=== PATIENT | female | born 1995 | race African-American/Black ===

== ENCOUNTER 2023-01-12 17:44 | Emergency (ER) | payer OTHER, SELFPAY ==
--- NOTE | ~2023-01-12 | XR_ITS ---
Clinical Indication: Chest pain PA and lateral views of the chest: Comparison: None Findings: The lungs are clear, without evidence of focal consolidation or pleural effusion. Cardiome diastinal silhouette is within normal limits. Bones and soft tissues are unremarkable. Impression: Normal chest. Reviewed, dictated and finalized at location . Impression: Normal chest.
--- NOTE | 2023-01-12 17:46 | ECG_ITS ---
Measurements Intervals [place] Rate: 103 P: 47 VT: 158 QRS: 17 QRSD: 79 T: -55 QT: 325 QTc: 426 Interpretive Statements SINUS TACHYCARDIA ST-T WAVE ABNORMALITY IN ANTEROLATERAL LEADS- CONSIDER ISCHEMIA ABNORMAL ECG NO PREVIOUS ECG AVAILABLE FOR COMPARISON Electronically Signed On 01-12-2023 20:55:41 CDT by Ayush Perdue D.O.
[2023-01-12 17:47] VITALS: BP 155/101; PULSE 103; RESP 18; TEMP 36.8; O2SAT 98
[2023-01-12 18:25] LABS: Basophils Percent Auto 0.5 % (0.2-1.2); Eosinophils Percent Auto 0.4 % (0-4.4); Hematocrit 40.5 % (37.0-47.0); Hemoglobin 13.3 g/dL (12.0-15.0); Immature Granulocyte Absolute 0.01 K/mm3 (0.00-0.031); Immature Granulocyte Percent A 0.1 % (0-0.5); Lymphocytes Absolute Auto 3.32 K/mm3 (0.9-3.2); Lymphocytes Percent Auto 41.8 % (18.3-44.2); Mean Corpuscular HGB Conc 32.8 g/dl (32-36); Mean Corpuscular Hemoglobin 31.7 pg (26-34); Mean Corpuscular Volume 96.4 fl (80-100); Mean Platelet Volume 8.4 fl (7.4-10.4); Monocytes Absolute Auto 0.5 K/mm3 (0.1-0.6); Monocytes Percent Auto 5.9 % (2.6-8.5); Neutrophils Absolute Auto 4.1 K/mm3 (1.3-6.7); Neutrophils Percent Auto 51.3 % (45.5-73.1); Platelet Count Result 416 k/mm3 (150-375); Red Cell Distribution Width 11.7 % (11.5-14.5)
[2023-01-12 18:35] LABS: INR 0.9; Prothrombin Time 12.7 Seconds (11.1-14.7)
[2023-01-12 18:37] LABS: Alanine Aminotransferase 21 U/L (6-35); Albumin Level 4.4 g/dL (3.5-5.1); Alkaline Phosphatase 49 U/L (38-126); Anion Gap 10 mmol/L (8-16); Aspartate Amino Transferase 23 U/L (14-36); Bilirubin,Total 0.7 mg/dL (0.2-1.3); Blood Urea Nitrogen 11 mg/dL (7-17); Calcium 9.3 mg/dL (8.4-10.2); Carbon Dioxide 24 mmol/L (22-30); Chloride 105 mmol/L (98-107); Estimated CRCL calculation 131 ml/min; Estimated Glomerular Filt Rate > 60; Glucose 101 mg/dL (65-110); Lipase 77 U/L (23-300); Potassium 3.6 mmol/L (3.4-5.0); Sodium 139 mmol/L (137-145)
[2023-01-12 18:49] LABS: Troponin I < 0.012 ng/mL (0.000-0.034)
[2023-01-12 21:15] VITALS: BP 152/86; PULSE 86; RESP 16; O2SAT 100
[2023-01-12] MEDS: ACETAMINOPHEN 500 MG TABLET 1000 MG PO (21:25)
[2023-01-12] MEDS: IBUPROFEN 400 MG TABLET 800 MG PO (21:25)
[2023-01-12 21:38] LABS: NT Pro B Type Natriuretic Pept 28 pg/mL (19.9-100)
[2023-01-12 21:39] LABS: Troponin I < 0.012 ng/mL (0.000-0.034)
[2023-01-12 21:54] LABS: D Dimer < 0.27 ug/mL (<0.48)
[2023-01-12 22:02] VITALS: O2SAT 100
--- NOTE | 2023-01-12 22:22 | ED.GENADULT ---
HPI - General Adult General Chief complaint: Chest Pain Stated complaint: Chest pain/SOB Time Seen by Provider: 01/12/23 21:05 History of Present Illness HPI narrative: This is a pleasant 27-year-old female presenting to ED with a chief complaint of shortness of breath chest pain. Patient says for the last 2 weeks she has been having intermittent sharp chest pain on the left side that sometimes moves to the right side. Is 4 5 in intensity. It comes and goes throughout the day and lasts about 5 minutes at a time She has never had this before there are no exacerbating or alleviating symptoms. She denies fever chills URI symptoms, nausea vomiting diarrhea, diaphoresis or exertional component, DVT / PE risk factors or recent trauma or surgeries. Related Data Allergies Allergy/AdvReac Type Severity Reaction Status Date / Time No Known Allergies Allergy Verified 01/12/23 17:46 [facility] Past Medical History Medical History Hypertension Exam Narrative: APPEARANCE: No apparent distress. Head: atraumatic. EYES: EOMI, NOSE: Atraumatic NECK: Trachea midline RESPIRATORY: No increased rate of breathing , clear to auscultation CARDIOVASCULAR: RRR, no peripheral edema ABDOMINAL: Non-distended soft nontender no guarding rebound, no CVA tenderness MUSCULOSKELETAl: No obvious deformities NEURO: Alert. Moving 4/4 extremities SKIN:: Warm, dry. Normal color PSYCHIATRIC: Normal affect Course Vital Signs Vital signs: Vital Signs Temperature 98.3 F 01/12/23 17:47 Pulse Rate 103 H 01/12/23 17:47 Respiratory Rate 18 01/12/23 17:47 Blood Pressure 155/101 H 01/12/23 17:47 Pulse Oximetry 98 01/12/23 17:47 Oxygen Delivery Room Air 01/12/23 17:47 Temperature 98.3 F 01/12/23 17:47 Pulse Rate 86 01/12/23 21:15 Respiratory Rate 16 01/12/23 21:15 Blood Pressure 152/86 H 01/12/23 21:15 Pulse Oximetry 100 01/12/23 22:02 Oxygen Delivery Room Air 01/12/23 22:02 Medical Decision Making [facility] Narrative Medical decision making narrative: -Course: 27-year-old female presenting with 2 weeks of intermittent shortnessof breath and chest pain. Work-up including troponins, BNP D-dimer EKG, and chest x-ray were negative. Patient has had stable vital signs and normal physical exam. Patient has subjective dyspnea but objectively is well appearing with a normal respiratory rate saturating 100% on room air. No episodes in the ED. Patient will be discharged with primary care follow-up and return precautions. 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 Chest x-ray normal. Independent EKG interpretation: Rhythm [sinus], Rate [103], Arnold -[normal], CA -[normal], QRS [narrow], QTC [normal], T waves -[negative for concerning inversions], ST Segments - [Negative for concerning elevations] Final interpretations: sinus tachycardia with nonspecific T-wave abnormalities] -Interventions: Motrin, Tylenol -Shared decision making / Disposition: discharged -RX Motrin, Tylenol Vital Signs Vital Signs: Vital Signs Temperature 98.3 F 01/12/23 17:47 Pulse Rate 103 H 01/12/23 17:47 Respiratory Rate 18 01/12/23 17:47 Blood Pressure 155/101 H 01/12/23 17:47 Pulse Oximetry 98 01/12/23 17:47 Oxygen Delivery Room Air 01/12/23 17:47 Temperature 98.3 F 01/12/23 17:47 Pulse Rate 86 01/12/23 21:15 Respiratory Rate 16 01/12/23 21:15 Blood Pressure 152/86 H 01/12/23 21:15 Pulse Oximetry 100 01/12/23 22:02 Oxygen Delivery Room Air 01/12/23 22:02 Lab Data 01/12/23 17:57 01/12/23 17:57 Labs:
== END 2023-01-12 22:41 | disposition home or self-care (01) ==
PROVIDERS: Student in an Organized Health Care Education/Training Program; Emergency Provider Emergency Medicine; PCP Internal Medicine Infectious Disease
DX: R07.89 Other chest pain (principal); I10 Essential (primary) hypertension; R00.0 Tachycardia, unspecified; R94.31 Abnormal electrocardiogram [ECG] [EKG]
CPT/HCPCS: 36415; 71046; 80053; 83690; 83880; 84484; 85025; 85380; 85610; 85730; 93005; 99284; A9270